=== PATIENT | female | born 1970 | race Caucasian/White ===

== ENCOUNTER 2022-02-16 16:01 | Inpatient (IN) | payer SELFPAY ==
[2022-02-16 17:25] LABS: Hemoglobin 11.9 g/dL (12.0-16.0); Mean Corpuscular Hemoglobin 32.1 pg (27.0-31.0); Mean Corpuscular Volume 94.2 fL (78.0-98.0); Mean Platelet Volume 7.1 fL (7.4-10.4); Platelet Count 298 thou/uL (130-400); RBC Distribution Width 19.6 % (11.5-14.5); Red Blood Cell (RBC) Count 3.71 mill/uL (4.20-5.40); White Blood Cell (WBC) Count 4.1 thou/uL (4.8-10.8)
[2022-02-16 17:39] LABS: Anisocytosis SLIGHT = 6-15 cells (100X) (0-5/hpf); Band 2 % (5-11); Lymphocytes 46 % (21-51); MDiff Complete? YES; Monocytes 8 % (0-10); Neutrophil 27 % (42-75); Platelet Morphology Comment Appears Adequate; Polychromasia SLIGHT = 2-3 cells (100X) (0-2/hpf); Reactive Lymphocytes 16 % (0-10)
[2022-02-16 17:46] LABS: Acetaminophen Less than 10.0 mcg/mL (10.0-30.0); Salicylate Less than 8.0 mg/dL (15.0-30.0)
[2022-02-16 17:49] LABS: ALT (SGPT) 9 U/L (8-55); AST (SGOT) 20 U/L (5-34); Albumin 4.3 g/dL (3.5-5.0); Alcohol 426 mg/dL (Less than 10); Alkaline Phosphatase 122 U/L (40-110); Anion Gap 16 mmol/L (10-20); BUN (Urea Nitrogen) 6 mg/dL (9.8-20.1); Bilirubin, Total 0.3 mg/dL (0.2-1.2); Calc. Creatinine Clearance 0 mL/min (70-130); Calcium 8.7 mg/dL (7.8-10.44); Carbon Dioxide 24 mmol/L (22-29); Chloride 98 mmol/L (98-107); Globulin 4.2 g/dL (2.4-3.5); Glucose 99 mg/dL (70-105); Potassium 3.7 mmol/L (3.5-5.1); Protein, Total 8.5 g/dL (6.0-8.3); Sodium 134 mmol/L (136-145)
[2022-02-16 17:56] LABS: Alcohol 431 mg/dL (Less than 10)
[2022-02-16] MEDS ORDERED: Ondansetron PF 4 MG/2 ML Vial IVP PRN (18:32)
[2022-02-16] MEDS ORDERED: Dextrose 50% Abboject 50 ML SYRINGE SLOW IVP PRN (18:32)
[2022-02-16] MEDS ORDERED: Dextrose 5% in Water 1,000 ML IV PRN (18:32)
[2022-02-16] MEDS ORDERED: Ondansetron ODT 4 MG TAB PO PRN (18:32)
[2022-02-16] MEDS ORDERED: hydrALAZINE 20 MG/ML VIAL SLOW IVP PRN (18:32)
[2022-02-16] MEDS ORDERED: Ketorolac Tromethamine 30 MG/ML VIAL IVP PRN (18:36)
[2022-02-16] MEDS ORDERED: Folic Acid 1 MG TAB PO SCH (18:45)
[2022-02-16] MEDS ORDERED: Multivitamin W/ Minerals 1 TAB PO SCH (18:45)
[2022-02-16] MEDS ORDERED: Thiamine 100 MG TAB PO SCH (18:45)
[2022-02-16] MEDS ORDERED: Morphine 4 MG/ML VIAL ONE (20:01)
[2022-02-16] MEDS: Famotidine/PF 20 mg/2ml Vial SLOW IVP SCH (22:27)
[2022-02-16] MEDS: Cyclobenzaprine 10 MG TAB PO PRN (22:28)
[2022-02-16] MEDS: Senokot S 8.6-50 MG TAB PO SCH (22:28)
[2022-02-16] MEDS: traMADol HCl 50 MG TAB PO PRN (22:29)
[2022-02-16] MEDS: Sodium Chloride 0.9% 1,000 ML IV SCH (22:32)
[2022-02-16] MEDS: Acetaminophen 325 MG TAB PO SCH (22:38)
[2022-02-16] MEDS: Oxazepam 10 MG CAP PO SCH (22:39)
[2022-02-16 22:43] VITALS: BMI 26.1
[2022-02-17 00:58] LABS: SARS-CoV-2 NAA Rapid Test Not Detected (NotDetected)
[2022-02-17 01:43] LABS: Bilirubin Negative (Negative); Blood, Urine Negative (Negative); Clarity Clear (Clear); Glucose, Urine (Dipstick) Normal (Negative); Ketone, Urine Trace mg/dL (Negative); Leukocyte Negative Leu/uL (Negative); Nitrite Negative (Negative); Protein, Urine (Dipstick) Negative (Neg-Trace); Specific Gravity, Urine 1.017 (1.002-1.036); Urobilinogen Normal mg/dL (Less than 2)
[2022-02-17 01:51] LABS: Amphetamine Not Detected (NotDetected); Barbiturates Screen Not Detected (NotDetected); Benzodiazepine Screen Detected (NotDetected); Cocaine Metabolite Screen Not Detected (NotDetected); Methadone Not Detected (NotDetected); Methamphetamine Not Detected (NotDetected); Opiate Screen Detected (NotDetected); Oxycodone Screen Not Detected (NotDetected); Phencyclidine (PCP) Not Detected (NotDetected); THC/Cannabinoid Screen Not Detected (NotDetected); Tricyclic Screen Not Detected (NotDetected)
[2022-02-17] MEDS: Acetaminophen 325 MG TAB PO SCH ×4 (03:34→22:00)
[2022-02-17] MEDS: Sodium Chloride 0.9% 1,000 ML IV SCH ×2 (03:35→16:00)
[2022-02-17] MEDS: Oxazepam 10 MG CAP PO SCH ×3 (05:51→22:02)
[2022-02-17 06:10] LABS: Phosphorus 3.3 mg/dL (2.3-4.7)
[2022-02-17 06:13] LABS: Anion Gap 15 mmol/L (10-20); BUN (Urea Nitrogen) 4 mg/dL (9.8-20.1); Calc. Creatinine Clearance 136 mL/min (70-130); Carbon Dioxide 20 mmol/L (22-29); Chloride 99 mmol/L (98-107); Glucose 76 mg/dL (70-105); Magnesium 1.4 mg/dL (1.6-2.6); Potassium 3.4 mmol/L (3.5-5.1); Sodium 131 mmol/L (136-145)
[2022-02-17 06:47] LABS: #Eosinphils 0.1 thou/uL (0.0-0.7); #Lymphocytes 1.4 thou/uL (1.20-3.40); #Monocytes 0.8 thou/uL (0.11-0.59); #Neutrophils 4.5 thou/uL (1.40-6.50); %Basophils 0.1 % (0.0-1.0); %Eosinophils 0.9 % (0.0-10.0); %Lymphocytes 20.6 % (21.0-51.0); %Monocytes 12.1 % (0.0-10.0); %Neutrophils 66.3 % (42.0-75.0); Hemoglobin 9.7 g/dL (12.0-16.0); Mean Corpuscular HGB CONC 32.7 g/dL (32.0-36.0); Mean Corpuscular Hemoglobin 30.8 pg (27.0-31.0); Mean Platelet Volume 6.4 fL (7.4-10.4); Platelet Count 218 thou/uL (130-400); RBC Distribution Width 18.4 % (11.5-14.5); Red Blood Cell (RBC) Count 3.16 mill/uL (4.20-5.40); White Blood Cell (WBC) Count 6.8 thou/uL (4.8-10.8)
[2022-02-17] MEDS ORDERED: Magnesium 2 GM/50 ML(in water) 4 GM in Premix Bag 1 BAG IVPB SCH (07:30)
[2022-02-17] MEDS ORDERED: Magnesium Sulfate In Water 4 GM in Premix Bag 1 BAG IVPB SCH (09:00)
[2022-02-17] MEDS ORDERED: Potassium Chloride 40 MEQ in Premix Bag 1 BAG IVPB SCH ×2 (09:00→14:00)
[2022-02-17] MEDS: traMADol HCl 50 MG TAB PO PRN (09:01)
[2022-02-17] MEDS: Famotidine/PF 20 mg/2ml Vial SLOW IVP SCH ×2 (09:02→20:23)
[2022-02-17] MEDS: Folic Acid 1 MG TAB PO SCH (09:03)
[2022-02-17] MEDS: Multivitamin W/ Minerals 1 TAB PO SCH (09:03)
[2022-02-17] MEDS: Polyethylene Glycol 3350 17 GM Packet PO SCH (09:03)
[2022-02-17] MEDS: Senokot S 8.6-50 MG TAB PO SCH ×2 (09:03→20:24)
[2022-02-17] MEDS: Thiamine 100 MG TAB PO SCH (09:03)
[2022-02-17] MEDS ORDERED: fentaNYL Citrate/PF 100 MCG/2 ML SYRINGE ONE (13:47)
[2022-02-17] MEDS ORDERED: Sodium Chloride 0.9% 100 ML ONE (13:58)
[2022-02-17] MEDS ORDERED: CEFAZOLIN 2 GM VIAL ONE (13:58)
[2022-02-17] MEDS ORDERED: PROPOFOL 200 MG/20 ML VIAL ONE (14:08)
[2022-02-17] MEDS ORDERED: PHENYLEPHRINE-NS 100 MCG/ML 10 ML SYRINGE ONE (14:08)
[2022-02-17] MEDS ORDERED: ePHEDrine 50 MG/ML VIAL ONE (14:08)
[2022-02-17] MEDS ORDERED: Lidocaine 1% PF 5 ML VIAL ONE (14:08)
[2022-02-17] MEDS ORDERED: Dexamethasone 20 MG/5 ML VIAL ONE (14:08)
[2022-02-17] MEDS ORDERED: Ketorolac Tromethamine 30 MG/ML VIAL ONE (14:08)
[2022-02-17] MEDS ORDERED: Ondansetron PF 4 MG/2 ML Vial ONE (14:08)
[2022-02-17] MEDS ORDERED: HYDROmorphone 2 MG/ML VIAL ONE (14:42)
[2022-02-17] MEDS ORDERED: Meperidine HCl/PF 25 MG/ML VIAL SLOW IVP PRN (16:08)
[2022-02-17] MEDS ORDERED: Fentanyl 100 MCG/2 ML VIAL ONE ×2 (16:08→16:28)
[2022-02-17] MEDS ORDERED: Promethazine HCl 25 MG/ML VIAL IM PRN (16:08)
[2022-02-17] MEDS ORDERED: HYDROmorphone 2 MG/ML VIAL SLOW IVP PRN (16:08)
[2022-02-17] MEDS ORDERED: Promethazine HCl 25 MG/ML VIAL IVPB PRN (16:08)
[2022-02-17] MEDS: CEFAZOLIN 2 GM in Sodium Chloride 0.9% 100 ML IVPB SCH (20:23)
[2022-02-17] MEDS: Cyclobenzaprine 10 MG TAB PO PRN (20:23)
[2022-02-18] MEDS: Acetaminophen 325 MG TAB PO SCH ×4 (03:07→22:43)
[2022-02-18] MEDS: Sodium Chloride 0.9% 1,000 ML IV SCH (03:33)
[2022-02-18] MEDS: Oxazepam 10 MG CAP PO SCH ×3 (05:56→22:43)
[2022-02-18] MEDS: Cyclobenzaprine 10 MG TAB PO PRN ×2 (05:56→22:41)
[2022-02-18] MEDS: CEFAZOLIN 2 GM in Sodium Chloride 0.9% 100 ML IVPB SCH (05:57)
[2022-02-18] MEDS: Famotidine/PF 20 mg/2ml Vial SLOW IVP SCH (08:06)
[2022-02-18] MEDS: Senokot S 8.6-50 MG TAB PO SCH ×2 (08:07→22:43)
[2022-02-18] MEDS: Multivitamin W/ Minerals 1 TAB PO SCH (08:07)
[2022-02-18] MEDS: Polyethylene Glycol 3350 17 GM Packet PO SCH (08:07)
[2022-02-18] MEDS: Folic Acid 1 MG TAB PO SCH (08:08)
[2022-02-18] MEDS: Thiamine 100 MG TAB PO SCH (08:08)
[2022-02-18] MEDS: Enoxaparin Sodium 40 MG/0.4 ML SYRINGE SC SCH (08:38)
[2022-02-18] MEDS: traMADol HCl 50 MG TAB PO PRN (12:31)
[2022-02-18] MEDS: traMADol HCl 50 MG TAB PO SCH ×2 (17:37→22:42)
[2022-02-18] MEDS: Ibuprofen 200 MG TAB PO SCH (22:43)
[2022-02-19] MEDS: Acetaminophen 325 MG TAB PO SCH ×3 (02:53→15:06)
[2022-02-19] MEDS: Oxazepam 10 MG CAP PO SCH ×2 (05:39→15:05)
[2022-02-19] MEDS: Ibuprofen 200 MG TAB PO SCH ×2 (05:40→15:05)
[2022-02-19] MEDS: traMADol HCl 50 MG TAB PO SCH ×2 (05:41→11:22)
[2022-02-19 07:52] VITALS: TEMP 98
[2022-02-19] MEDS: Thiamine 100 MG TAB PO SCH (07:59)
[2022-02-19] MEDS: Folic Acid 1 MG TAB PO SCH (07:59)
[2022-02-19] MEDS: Enoxaparin Sodium 40 MG/0.4 ML SYRINGE SC SCH (07:59)
[2022-02-19] MEDS: Multivitamin W/ Minerals 1 TAB PO SCH (07:59)
[2022-02-19] MEDS: Senokot S 8.6-50 MG TAB PO SCH (08:00)
[2022-02-19] MEDS: Polyethylene Glycol 3350 17 GM Packet PO SCH (08:00)
[2022-02-19 13:18] VITALS: BP 120/73
[2022-02-19] MEDS ORDERED: Haemoph B Poly Conj-Tet Tox/PF 10 MCG/0.5 ML VIAL IM ONE (18:00)
[2022-02-20] MEDS ORDERED: Meningococcal Vaccine 0.5ML VIAL (MENACTRA) IM ONE (18:00)
[2022-02-21] MEDS ORDERED: Prevnar 13-Val Conj/PF 0.5 ML SYRINGE IM ONE (18:00)
== END 2022-02-19 15:15 | disposition home or self-care (01) | DRG 493 ==
LOC: ERS 16:01 → SURG A 18:35
PROVIDERS: ADMIT Surgery; ATTEND Surgery
PROC: 0QSG06Z Reposition Right Tibia with Intramedullary Internal Fixation Device, Open Approach (ICD-10-PCS; principal; 2022-02-17)
DX: S82.874A Nondisplaced pilon fracture of right tibia, initial encounter for closed fracture (principal); E87.1 Hypo-osmolality and hyponatremia; W10.9XXA Fall (on) (from) unspecified stairs and steps, initial encounter; Z20.822 Contact with and (suspected) exposure to COVID-19; F10.129 Alcohol abuse with intoxication, unspecified; Y90.8 Blood alcohol level of 240 mg/100 ml or more; E87.6 Hypokalemia; E83.42 Hypomagnesemia; S82.831A Other fracture of upper and lower end of right fibula, initial encounter for closed fracture; Z98.51 Tubal ligation status; Y92.018 Other place in single-family (private) house as the place of occurrence of the external cause
CPT/HCPCS: 29515; 36415; 71045; 76000; 80048; 80053; 80306; 80307; 81003; 83735; 84100; 85025; 93005; 96374; C1713; G0390; J1100; J1170; J1650; J1885; J2270; J2405; J2704; J3010; J3475; J3480; J3490; J7050; S0028; U0002